=== PATIENT | male | born 1990 | race Caucasian/White ===

== ENCOUNTER 2016-07-29 09:46 | Outpatient (CLI) | payer OTHER ==
--- NOTE | 2016-07-29 12:16 | DIAGNOSTIC IMAGING REPORT ---
PROCEDURE: MR CERVICAL SPINE W/O CONT INDICATION: CERVICOGENIC HEADACHE TECHNIQUE: Noncontrast T1, T2, and STIR sagittal images. T2 and gradient axial images. COMPARISON: None. FINDINGS: The cervical cord is normal in size and signal intensity. C1-2: Normal. C2-3: Normal. C3-4: Normal. C4-5: Normal. C5-6: Normal. C6-7: Normal. C7-T1: Normal. IMPRESSION: 1. Normal MRI of the cervical spine
== END 2016-07-29 23:00 | disposition home or self-care (01) ==
LOC: MRI SRH 09:46
DX: R51 Headache (principal)